=== PATIENT | female | born 1950 | race Caucasian/White ===

== ENCOUNTER 2022-09-30 09:42 | Outpatient (REF) | payer MEDICARE, SELFPAY ==
--- NOTE | ~2022-09-30 | XR_ITS ---
EXAMINATION: XR CHEST CLINICAL INFORMATION: Thoracic spine pain COMPARISON: None TECHNIQUE: 2 views of the chest were obtained. FINDINGS: The lungs are well expanded. There is no focal consolidation, edema, or effusion. No pneumothorax. The cardiomediastinal silhouette is within normal limits. No acute osseous abnormality. Mild degenerative changes of the thoracic spine. XR/XR chest 2V IMPRESSION: Clear lungs. Mild degenerative changes of the thoracic spine.
== END 2022-09-30 09:43 | disposition home or self-care (01) ==
LOC: HO.HMGCX 09:42
PROVIDERS: PCP Internal Medicine; Visit Provider Nurse Practitioner Family
DX: M54.6 Pain in thoracic spine (principal)
CPT/HCPCS: 71046